=== PATIENT | female | born 1980 | race Caucasian/White ===

== ENCOUNTER 2021-02-05 09:51 | Observation (INO) | payer OTHER ==
[~2021-02-05] VITALS: Ht 165.1 cm; Wt 47.6 kg
[~2021-02-05 09:51] MED LIST: ATORVASTATIN CA20 MG PO; BENTYL 10MG CAP10 MG PO; ECOTRIN81 MG PO; ESCITALOPRAM OX20 MG PO; FLONASE 0.05% N16 GM; HABITROL 14 MG P1 EA TOP; IMDUR ER TAB 3030 MG PO; LACTULOSE10 GM/151 PO; LODINE CAP 300300 MG PO; NITROGLYCERIN0.4 MG SL; OMEPRAZOLE20 MG PO; PHENERGAN 12.12.5 M1 PO; PLAVIX 75 MG TA75 MG PO; POTASSIUM20 MEQ/11 PO; POTASSIUM99 M1 PO; PROTONIX40 MG PO; REGLAN 10 MG TA10 MG GT; ROPINIROLE HCL1 MG PO; TOPROL XL25 MG PO; VENLAFAXINE HCL75 MG PO
[2021-02-05 10:35] LABS: RED BLOOD COUNT 4.77 M/UL (4.00-5.10); WHITE BLOOD COUNT 7.8 K/UL (4.5-11.0)
[2021-02-05 11:50] LABS: BUN/CREATININE RATIO 20 (0-10)
[2021-02-05] MEDS ORDERED: POTASSIUM99 M1 PO (13:03)
== END 2021-02-05 17:01 | disposition home or self-care (01) ==
LOC: ER1 09:51 → CDU 12:06 → M/S 14:36
PROVIDERS: Emergency Medicine; ADMIT Internal Medicine
DX: R07.89 Other chest pain (principal); I25.10 Atherosclerotic heart disease of native coronary artery without angina pectoris; I10 Essential (primary) hypertension; E78.5 Hyperlipidemia, unspecified; I25.2 Old myocardial infarction; F17.210 Nicotine dependence, cigarettes, uncomplicated; Z95.5 Presence of coronary angioplasty implant and graft; Z88.1 Allergy status to other antibiotic agents; Z88.5 Allergy status to narcotic agent; Z79.82 Long term (current) use of aspirin; Z79.02 Long term (current) use of antithrombotics/antiplatelets; Z79.899 Other long term (current) drug therapy; Z20.822 Contact with and (suspected) exposure to COVID-19
CPT/HCPCS: 36415; 70450; 71045; 80053; 82550; 82553; 83874; 83880; 84484; 85025; 85379; 93005; 99285; G0378; U0002

== ENCOUNTER 2021-05-21 18:23 | Emergency (ER) | payer OTHER | END 2021-05-21 22:35 | disposition left against medical advice (07) | LOC: ER1 18:23 | DX: Z53.21 Procedure and treatment not carried out due to patient leaving prior to being seen by health care provider (principal) ==

== ENCOUNTER 2021-05-22 16:16 | Emergency (ER) | payer OTHER | END 2021-05-22 17:46 | disposition home or self-care (01) | LOC: ER1 16:16 | DX: S61.412A Laceration without foreign body of left hand, initial encounter (principal); E11.9 Type 2 diabetes mellitus without complications; I51.9 Heart disease, unspecified; F17.200 Nicotine dependence, unspecified, uncomplicated; Z90.710 Acquired absence of both cervix and uterus; Z90.89 Acquired absence of other organs; W26.8XXA Contact with other sharp object(s), not elsewhere classified, initial encounter; Z23 Encounter for immunization | CPT/HCPCS: 82962; 90471; 90715; 99283 ==

== ENCOUNTER 2021-07-24 13:44 | Emergency (ER) | payer OTHER ==
[2021-07-24 14:13] LABS: HEMOGLOBIN 14.3 gm/dl (12.3-15.3); RED BLOOD COUNT 4.33 M/UL (4.00-5.10); WHITE BLOOD COUNT 5.4 K/UL (4.5-11.0)
[2021-07-24 14:46] LABS: BUN/CREATININE RATIO 21 (0-10)
== END 2021-07-24 17:25 | disposition home or self-care (01) ==
LOC: ER1 13:44
PROVIDERS: Student in an Organized Health Care Education/Training Program
DX: R07.89 Other chest pain (principal); J44.9 Chronic obstructive pulmonary disease, unspecified; I25.10 Atherosclerotic heart disease of native coronary artery without angina pectoris; E78.5 Hyperlipidemia, unspecified; F17.210 Nicotine dependence, cigarettes, uncomplicated; Z90.710 Acquired absence of both cervix and uterus; Z90.89 Acquired absence of other organs
CPT/HCPCS: 71045; 80048; 82550; 82553; 83874; 84484; 85025; 93005; 96374; 99285; J1100

== ENCOUNTER → 2021-08-24 | Outpatient (CLI) | payer OTHER | LOC: HEART 5 10:39 | DX: I25.10 Atherosclerotic heart disease of native coronary artery without angina pectoris (principal); R07.9 Chest pain, unspecified | CPT/HCPCS: 93306 ==

== ENCOUNTER → 2021-08-31 | Outpatient (CLI) | payer OTHER | LOC: HEART 5 14:21 | DX: R06.02 Shortness of breath (principal) | CPT/HCPCS: 94060; 94729 ==

== ENCOUNTER 2022-05-31 07:34 | Emergency (ER) | payer OTHER ==
[~2022-05-31] VITALS: Ht 165.1 cm; Wt 39.9 kg
== END 2022-05-31 08:09 | disposition left against medical advice (07) ==
LOC: ER1 07:34
DX: F10.10 Alcohol abuse, uncomplicated (principal); I25.2 Old myocardial infarction; J44.9 Chronic obstructive pulmonary disease, unspecified; I10 Essential (primary) hypertension; F17.200 Nicotine dependence, unspecified, uncomplicated; Z90.89 Acquired absence of other organs
CPT/HCPCS: 71045; 93005; 99283; J3411; J3475; J7030